=== PATIENT | female | born 1955 | race Caucasian/White ===

== ENCOUNTER 2017-09-07 14:07 | Emergency (ER) | payer BC ==
[~2017-09-07] VITALS: Ht 162.6 cm; Wt 80.0 kg
[2017-09-07] MEDS ORDERED: OXAYDO5 MG PO (18:20)
[2017-09-07 18:44] VITALS: BP 137/69
== END 2017-09-07 18:50 | disposition home or self-care (01) ==
LOC: EME 14:07
DX: S82.852A Displaced trimalleolar fracture of left lower leg, initial encounter for closed fracture (principal); S82.452A Displaced comminuted fracture of shaft of left fibula, initial encounter for closed fracture; W01.0XXA Fall on same level from slipping, tripping and stumbling without subsequent striking against object, initial encounter; Y93.01 Activity, walking, marching and hiking; Y92.830 Public park as the place of occurrence of the external cause; I10 Essential (primary) hypertension
CPT/HCPCS: 73590; 73600; 73630; 99281; 99284; J3010

== ENCOUNTER → 2017-09-11 | Outpatient (CLI) | payer BC ==
[~2017-09-11] MED LIST: OXAYDO5 MG PO
== END | disposition home or self-care (01) ==
LOC: CDC 14:03
DX: Z01.810 Encounter for preprocedural cardiovascular examination (principal); I10 Essential (primary) hypertension; S82.841A Displaced bimalleolar fracture of right lower leg, initial encounter for closed fracture
CPT/HCPCS: 93000